=== PATIENT | female | born 1955 | race Caucasian/White ===

== ENCOUNTER → 2016-12-30 | Day surgery (SDC) | payer BC ==
[~2016-12-30] MED LIST: ACTONEL150 MG PO; HYDROCODON-ACE1 EAC9 PO; KEFLEX500 M2 PO; LEVOTHYROXINE100 MCG PO; LEVOTHYROXINE75 MCG PO; LORTAB 7.51 TAB PO; NEURONTIN600 MG PO; NORCO 10-325 TA1 TAB; NORCO1 TAB 10/3 PO; ZITHROMAX1 G/PKT PO
--- NOTE | ~2016-12-30 | OR ---
Unit #: [id number] #: [id number] Patient: NELSON GOODWIN [id number] [address] [address] [id number] O MR#: [id number] NAME: NELSON GOODWIN ROOM: Date of Procedure: 12/30/2016 Admission Date: 12/30/2016 Surgeon: Dev Escalera Jr., M.D. : 1955 Attending Physician: Dev Escalera Jr., M.D. Primary Care Physician: Dominguez Baldwin M.D. OPERATIVE REPORT INDICATIONS FOR PROCEDURE The patient is a 61-year-old white female with a known past history of thyroid cancer. She has had previous thyroidectomy. She recently presented to the office for followup of this and has no evidence of any recurrence. She also desires screening colonoscopy. She is brought in at this time at her request for this procedure. She has had her prep at home. She understands the procedure including the risks, including that of perforation and bleeding, and consents. PREOPERATIVE DIAGNOSIS Desires screening colonoscopy to rule out pathology. POSTOPERATIVE DIAGNOSES Small localized area of mild nonulcerative colitis at 40 cm in the sigmoid and some areas of mild diverticulosis without diverticulitis in the left colon. ANESTHESIA MAC anesthesia. PROCEDURE PERFORMED Flexible colonoscopy to the distal ileum with biopsies of small area of the sigmoid at 40 cm. DESCRIPTION OF PROCEDURE The patient was positioned in Hartman position with left side down. After being given MAC anesthesia, digital rectal examination was performed, which revealed no palpable mass or tenderness. No blood or stool in the rectal ampulla. The Olympus colonoscope was advanced through the anal canal up the rectum and retroflexed down to the area of the anorectal region. There were no fissures. No evidence of any internal hemorrhoids except for some hemorrhoidal irritation in the anal canal itself. There were no evidence of any masses. The scope was straightened and advanced up into the rectosigmoid and up into the sigmoid at approximately 40 cm, there was a small area localized, nonulcerative, mild colitis. Several biopsies were taken from this without significant bleeding. The scope was then advanced up in the proximal sigmoid and descending colon, where there were few diverticula without evidence of diverticulitis. The scope was then advanced around the splenic flexure and the transverse colon, around the hepatic flexure and the ascending colon, down in the area of the cecum. The light from the tip of the scope could be seen transilluminating through right lower quadrant abdominal wall area. The Unit #: [id number] #: [id number] Patient: NELSON GOODWIN scope was advanced up the distal ileum approximately 10 to 12 inches. There was no evidence of any ileitis or inflammatory bowel disease. The scope was slowly removed. There were no tumors, polyps, cancer, or AVMs. No evidence of any colitis except for the small localized area in the sigmoid at 40 cm. No evidence of any diverticulitis. The caliber of the colon appeared normal throughout without evidence of narrowing or obstruction. The scope was removed. The patient tolerated the procedure well and discharged in satisfactory condition. Dictated by... Dev Escalera Jr., M.D. JMB/lalo TD: 12/30/2016 20:36 JOB #: [id number] CC: Dominguez Baldwin M.D. OPERATIVE REPORT Page 1 of 1 X Dev Escalera MD X PROCEDURE OPERATIVE NOTE
== END | disposition home or self-care (01) ==
LOC: COPS 11:08
DX: Z12.11 Encounter for screening for malignant neoplasm of colon (principal); K52.9 Noninfective gastroenteritis and colitis, unspecified; K57.30 Diverticulosis of large intestine without perforation or abscess without bleeding; K64.9 Unspecified hemorrhoids; M81.0 Age-related osteoporosis without current pathological fracture; Z85.850 Personal history of malignant neoplasm of thyroid; Z87.19 Personal history of other diseases of the digestive system; Z88.8 Allergy status to other drugs, medicaments and biological substances; Z79.899 Other long term (current) drug therapy; Z98.51 Tubal ligation status; Z90.49 Acquired absence of other specified parts of digestive tract; Z98.890 Other specified postprocedural states
CPT/HCPCS: 88305